=== PATIENT | male | born 1985 ===

== ENCOUNTER 2019-08-05 23:08 | Emergency (ER) | payer SELFPAY ==
[~2019-08-05] VITALS: Ht 180.3 cm; Wt 100.0 kg
[~2019-08-05 23:08] MED LIST: CRUTCH4 USE; HYDACE5 PO; IBUP200; PENVK500 PO
[2019-08-05 23:26] LABS: BASOPHILS ABSOLUTE AUTO 0.07 K/mm3 (0.00-0.23); BASOPHILS PERCENT AUTO 0 % (0-2); EOSINOPHILS ABSOLUTE AUTO 0.06 K/mm3 (0.00-0.68); EOSINOPHILS PERCENT AUTO 0 % (0-6); Hematocrit 42.1 % (37.0-53.0); Hemoglobin 14.4 g/dL (13.5-17.5); IMMATURE GRAN ABSOLUTE AUTO 0.15 K/mm3 (0.00-0.10); IMMATURE GRAN PERCENT AUTO 1 % (0-1); LYMPHOCYTES ABSOLUTE AUTO 2.53 K/mm3 (0.84-5.20); LYMPHOCYTES PERCENT AUTO 13 % (21-46); MONOCYTES PERCENT AUTO 8 % (4-13); Mean Corpuscular HGB 33.9 pg (26.0-34.0); Mean Corpuscular HGB Conc 34.2 g/dL (31.5-36.5); Mean Corpuscular Volume 99 fL (80-100); Mean Platelet Volume 9.2 fL (9.1-12.4); NEUTROPHILS ABSOLUTE AUTO 14.55 K/mm3 (1.96-9.15); NEUTROPHILS PERCENT AUTO 77 % (41-73); Platelet Count 294 K/mm3 (150-400); RDW Coefficient Variation 12.7 % (11.7-14.2); RDW Standard Deviation 46.6 fL (35.1-46.3); Red Blood Cell Count 4.25 M/mm3 (4.30-5.90); White Blood Cell Count 18.96 K/mm3 (4.00-11.30)
[2019-08-05 23:47] LABS: Alanine Aminotransfer (ALT/SGP 40 U/L (12-78); Albumin, Blood 3.9 g/dL (3.4-5.0); Albumin/Globulin Ratio 1.2 (0.8-1.8); Alk Phos 67 U/L (50-136); Anion Gap 8 mmol/L (6-16); Aspartate Aminotrans (AST/SGOT 49 U/L (12-37); Bilirubin, Total 0.3 mg/dL (0.1-1.0); Blood Urea Nitrogen 15 mg/dL (8-24); Bun/Creatinine Ratio 14.7 (12.0-20.0); CO2, Blood 25 mmol/L (21-32); Calcium, Blood 8.1 mg/dL (8.5-10.1); Chloride, Blood 108 mmol/L (98-108); Creatinine, Blood 1.02 mg/dL (0.60-1.20); Ethanol (Alcohol), Blood, Med 231 mg/dL; Globulin, Blood 3.2 g/dL (2.2-4.0); Glomerular Filtration Rate >60 (60-); Glucose, Blood 100 mg/dL (70-99); Sodium, Blood 141 mmol/L (136-145); Total Protein, Blood 7.1 g/dL (6.4-8.2)
[2019-08-06 00:30] LABS: Source, Urine Catheter
[2019-08-06 00:33] LABS: Bilirubin, Urine Neg (Neg); Blood, Urine Neg (Neg); Glucose Qualitative, Urine Neg (Neg); Ketones, Urine Neg (Neg); Leukocyte Esterase, Urine Neg (Neg); Nitrite, Urine Neg (Neg); Protein, Urine Neg (Neg); Urobilinogen, Urine NORM (Normal)
[2019-08-06 00:37] LABS: Appearance, Urine Clear (Clear); Color, Urine Yellow (P-Yellow)
== END 2019-08-06 01:00 | disposition short-term general hospital (02) ==
LOC: ER 23:08
PROVIDERS: Emergency Medicine
DX: S06.5X9A Traumatic subdural hemorrhage with loss of consciousness of unspecified duration, initial encounter (principal); S02.19XA Other fracture of base of skull, initial encounter for closed fracture; S42.021A Displaced fracture of shaft of right clavicle, initial encounter for closed fracture; S22.41XA Multiple fractures of ribs, right side, initial encounter for closed fracture; S27.321A Contusion of lung, unilateral, initial encounter; S30.0XXA Contusion of lower back and pelvis, initial encounter; S60.512A Abrasion of left hand, initial encounter; S60.511A Abrasion of right hand, initial encounter; S80.812A Abrasion, left lower leg, initial encounter; S80.811A Abrasion, right lower leg, initial encounter; S30.811A Abrasion of abdominal wall, initial encounter; S30.810A Abrasion of lower back and pelvis, initial encounter; F10.129 Alcohol abuse with intoxication, unspecified; Z88.5 Allergy status to narcotic agent; F17.200 Nicotine dependence, unspecified, uncomplicated; V86.59XA Driver of other special all-terrain or other off-road motor vehicle injured in nontraffic accident, initial encounter
CPT/HCPCS: 31500; 31720; 51702; 70450; 71045; 71260; 72125; 73080; 74177; 80053; 81003; 83690; 85025; 90471; 90714; 94002; 94003; 96361; 96374; 96375; 96376; 99291-25; 99292; G0480; J2704; J3010; J7030; Q9967

== ENCOUNTER 2023-04-23 22:04 | Emergency (ER) | payer SELFPAY ==
[~2023-04-23] VITALS: Ht 190.5 cm; Wt 104.3 kg
[2023-04-23 22:12] VITALS: BP 140/105
[2023-04-23] MEDS ORDERED: AMOCLA875 PO (22:37)
== END 2023-04-23 22:45 | disposition home or self-care (01) ==
LOC: ER 22:04
DX: L08.9 Local infection of the skin and subcutaneous tissue, unspecified (principal); Z88.5 Allergy status to narcotic agent
CPT/HCPCS: 99282; A9270

== ENCOUNTER 2023-10-21 22:14 | Inpatient (IN) | payer OTHER ==
[~2023-10-21] VITALS: Ht 190.5 cm; Wt 97.0 kg
[~2023-10-21 22:14] MED LIST changes: +AMOCLA875 PO
[2023-10-21 23:54] LABS: BASOPHILS ABSOLUTE AUTO 0.08 K/mm3 (0.00-0.23); BASOPHILS PERCENT AUTO 0 % (0-2); EOSINOPHILS ABSOLUTE AUTO 0.17 K/mm3 (0.00-0.68); EOSINOPHILS PERCENT AUTO 1 % (0-6); Hematocrit 38.3 % (37.0-53.0); Hemoglobin 13.6 g/dL (13.5-17.5); IMMATURE GRAN ABSOLUTE AUTO 0.09 K/mm3 (0.00-0.10); IMMATURE GRAN PERCENT AUTO 0 % (0-1); LYMPHOCYTES ABSOLUTE AUTO 2.68 K/mm3 (0.84-5.20); LYMPHOCYTES PERCENT AUTO 13 % (21-46); MONOCYTES ABSOLUTE AUTO 2.13 K/mm3 (0.16-1.47); MONOCYTES PERCENT AUTO 10 % (4-13); Mean Corpuscular HGB 32.8 pg (26.0-34.0); Mean Corpuscular HGB Conc 35.5 g/dL (31.5-36.5); Mean Corpuscular Volume 92 fL (80-100); NEUTROPHILS ABSOLUTE AUTO 15.76 K/mm3 (1.96-9.15); NEUTROPHILS PERCENT AUTO 75 % (41-73); Platelet Count 262 K/mm3 (150-400); RDW Coefficient Variation 12.4 % (11.7-14.2); RDW Standard Deviation 42.4 fL (35.1-46.3); Red Blood Cell Count 4.15 M/mm3 (4.30-5.90); White Blood Cell Count 20.91 K/mm3 (4.00-11.30)
[2023-10-22 00:06] LABS: Albumin, Blood 3.8 g/dL (3.4-5.0); Bilirubin, Total 0.8 mg/dL (0.1-1.0); Bun/Creatinine Ratio 14.4 (12.0-20.0); Calcium, Blood 9.1 mg/dL (8.5-10.1); Creatinine, Blood 0.9 mg/dL (0.60-1.20); Globulin, Blood 3.8 g/dL (2.2-4.0); Potassium, Blood 3.7 mmol/L (3.5-5.5); Total Protein, Blood 7.6 g/dL (6.4-8.2)
[2023-10-22] MEDS ORDERED: NS 1,000 ML IV SCH (03:15)
[2023-10-22] MEDS ORDERED: CefTRIAXone Sodium 1,000 MG in NS 50 ML IV ONE (03:15)
[2023-10-22] MEDS ORDERED: Ketorolac Tromethamine 30mg Vial IV ONE (03:15)
[2023-10-22] MEDS ORDERED: CefTRIAXone Sodium 1,000 MG in NS 100 ML IV ONE (04:35)
[2023-10-22] MEDS ORDERED: Acetaminophen 325 MG TABLET PO PRN (05:10)
[2023-10-22] MEDS ORDERED: Ondansetron HCl 2 MG / ML 2ML Vial IV PRN (05:10)
[2023-10-22] MEDS ORDERED: Ketorolac Tromethamine 15mg Vial IV PRN (05:15)
[2023-10-22 06:43] VITALS: BP 109/67
[2023-10-22] MEDS ORDERED: CeFAZolin Sodium 2,000 MG in NS 100 ML IV SCH (08:00)
[2023-10-22] MEDS ORDERED: NS 1,000 ML BAG IR SCH (08:35)
[2023-10-22] MEDS ORDERED: NS 250 ML IV PRN (08:40)
[2023-10-22] MEDS ORDERED: Lactobacil 2-S.Thermo-Bifido 1 1 Cap PO SCH (09:00)
[2023-10-22 16:30] VITALS: BP 133/73
--- NOTE | 2023-10-22 18:12 | NUR ---
SHIFT SUMMARY PATIENT ALERT AND ORIENTED TIMES 4, PAINFUL SWOLLEN AND REDDENED RIGHT GROIN AREA. IV ANTIBOTICS GIVEN. VSS, URINE SAMPLE COLLECT R/O STD, MSRA SWAB COMPLETED.
[2023-10-22 19:15] VITALS: BP 122/80
--- NOTE | 2023-10-23 03:05 | NUR ---
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 ALERT AND ORIENTED X 4. SLEEPING INTERMITTENTLY IN THE EVENING. TOLERATED DIET WELL. MEDICATED FOR PAIN, AND RECEIVING IV ANTIBIOTICS FOR GROIN CELLULITIS (SEE PIC IN CHART). UP AD JAZMIN. ABLE TO REPOSITION SELF IN BED FOR COMFORT WITHOUT ASSIST. HAS BEEN RESTING QUIETLY WITH FEW INTERRUPTIONS THROUGHOUT NOCT. CALL LIGHT IN REACH, RAILS UP X 2 AND BED IN LOW POSITION FOR SAFETY. ISOLATION PRECAUTIONS CONTINUE-SEE LAB FOR CULTURE DETAILS. NO NOTED S/S ACUTE PHYSICAL DISTRESS. WILL CONTINUE TO MONITOR
[2023-10-23 04:19] VITALS: BP 115/72
[2023-10-23 04:54] LABS: BASOPHILS ABSOLUTE AUTO 0.07 K/mm3 (0.00-0.23); BASOPHILS PERCENT AUTO 1 % (0-2); EOSINOPHILS ABSOLUTE AUTO 0.29 K/mm3 (0.00-0.68); EOSINOPHILS PERCENT AUTO 2 % (0-6); IMMATURE GRAN ABSOLUTE AUTO 0.05 K/mm3 (0.00-0.10); IMMATURE GRAN PERCENT AUTO 0 % (0-1); LYMPHOCYTES ABSOLUTE AUTO 2.36 K/mm3 (0.84-5.20); LYMPHOCYTES PERCENT AUTO 16 % (21-46); MONOCYTES ABSOLUTE AUTO 1.53 K/mm3 (0.16-1.47); MONOCYTES PERCENT AUTO 11 % (4-13); Mean Corpuscular HGB 32.1 pg (26.0-34.0); Mean Corpuscular HGB Conc 34.2 g/dL (31.5-36.5); Mean Corpuscular Volume 94 fL (80-100); Mean Platelet Volume 9.8 fL (9.1-12.4); NEUTROPHILS ABSOLUTE AUTO 10.29 K/mm3 (1.96-9.15); NEUTROPHILS PERCENT AUTO 71 % (41-73); Platelet Count 261 K/mm3 (150-400); RDW Coefficient Variation 12.7 % (11.7-14.2); RDW Standard Deviation 44.1 fL (35.1-46.3); Red Blood Cell Count 4.05 M/mm3 (4.30-5.90); White Blood Cell Count 14.59 K/mm3 (4.00-11.30)
[2023-10-23 05:48] LABS: Bun/Creatinine Ratio 13.8 (12.0-20.0); Calcium, Blood 9.1 mg/dL (8.5-10.1); Creatinine, Blood 0.95 mg/dL (0.60-1.20); Potassium, Blood 4.1 mmol/L (3.5-5.5)
[2023-10-23 07:29] VITALS: BP 114/72
[2023-10-23] MEDS ORDERED: Nicotine 21 MG PATCH TOP SCH (14:10)
[2023-10-23 15:11] VITALS: BP 124/80
--- NOTE | 2023-10-23 18:14 | NUR ---
SHIFT SUMMARY MR OKEEFE HAS SOME INCREASE TO RIGHT GROIN SWELLING. PINKNESS 1-2CM PAST PEN MICHAEL FROM 10/21. UP INDEPENDENTLY TO THE BATHROOM. HE SMOKES 1.5PPD CIGARETTES NORMALLY, NICOTENE PATCH APPLIED AND PT SAID HE'S FEELING BETTER SINCE APPLICATION. PAIN WELL CONTROLLED. BED LOW, CALL LIGHT IN REACH.
[2023-10-23 20:02] VITALS: BP 131/87
--- NOTE | 2023-10-24 03:54 | NUR ---
PHYTOPATHOLOGY TEACHER SUMMARY VSS. ALERT AND ORIENTED. UP AD JAZMIN. VOICED GROIN INFLAMMATION INCREASED IN SWELLING. NOTD SWELLING OF RIGHT GROIN, APPEARS MORE SWOLLEN THAN NOTED OF PIC IN CHART TAKEN A FEW DAYS AGO. NO NOTED DRAINAGE. REQUESTED AND RECEIVED ANALGESICS FOR DISCOMFORT, IV ANTIBIOTICS INFUSING ORDERED - SEE MAR FOR DETAILS OF MEDS ADMINISTERED. ABLE TO REPOSITION SELF IN BED WITHOUT ASSIST. RAILS UP X 2, CALL LIGHT IN REACH AND BED IN LOW POSITION FOR SAFETY. ISOLATION PRECAUTIONS MAINTAINED. ENCOURAGED TO TALK TO MD IN THE AM RE HIS CONCERNS RE GRION CELLULITIS, AGREED TO DO SO. WILL CONTINUE TO MONITOR
[2023-10-24 05:21] VITALS: BP 123/81
[2023-10-24 07:24] VITALS: BP 113/84
--- NOTE | 2023-10-24 09:00 | NUR ---
pt laying in bed wakes easily, a/ox4, pleasant and cooperative with care, follows commands well, denies complaints, lungs clear on r/a, no cough noted, hrr, no edema noted, ppp+2, cap refill<3 sec, vs stable, afebrile, piv to rhand site is clear and patent, btx4, abd flat soft nontender, voids without diff, skin c/w/d, maew, abraham, call light in reach.
[2023-10-24] MEDS ORDERED: CefTRIAXone Sodium 2,000 MG in NS 100 ML IV SCH (10:30)
[2023-10-24] MEDS ORDERED: Vancomycin HCL 2,500 MG in NS 500 ML IV ONE (11:00)
[2023-10-24 16:09] VITALS: BP 139/83
[2023-10-24 17:08] LABS: HIV 1,2 COMBO ANTIGEN/ANTIBODY Negative (Negative)
--- NOTE | 2023-10-24 19:22 | NUR ---
pt up ad wilfred in room, has been pleasant and cooperative with care, ct was done Dr. Cespedes was consulted and ordered him to be npo after mid, abx were changed today, no further changes this shift. call light in reach.
[2023-10-24 19:37] VITALS: BP 108/79
[2023-10-24] MEDS ORDERED: Vancomycin HCL 1,250 MG in NS 250 ML IV SCH (20:00)
[2023-10-25] VITALS (11 sets, daily range): BP systolic 100–134; BP diastolic 64–94
--- NOTE | 2023-10-25 06:00 | NUR ---
SHIFT SUMMARY: PATIENT FULLY ORIENTED, COOPERATIVE. COMPLAINTS OF PAIN IN RIGHT GROIN AT BEGINNING OF SHIFT WHICH WERE ALLIEVIATED SUCCESSFULLY BY KETORLAC. RIGHT GROIN ABSCESS HAD MINOR DRAINAGE AT 0200, COVERED BY GAUZE AND TAPE.
[2023-10-25 06:31] LABS: APTIMA MEDIA TYPE Urine; C. TRACHOMATIS BY TMA Negative (Negative); N. GONORRHOEAE BY TMA Negative (Negative); SPECIMEN SOURCE Urine
[2023-10-25 11:22] LABS: Creatinine, Blood 0.96 mg/dL (0.60-1.20); Vancomycin, Trough 19.5 ug/mL (5.0-10.0)
[2023-10-25] MEDS ORDERED: Vancomycin HCL 1,000 MG in NS 250 ML IV SCH (12:00)
[2023-10-25] MEDS ORDERED: Lactated Ringer's 1,000 ML IV SCH (12:35)
[2023-10-25] MEDS ORDERED: Midazolam HCL 1 MG/ML 5MLVIAL ONE (12:57)
[2023-10-25] MEDS ORDERED: Lidocaine HCl 2% 20 ML MDV ONE (13:02)
[2023-10-25] MEDS ORDERED: propofoL 40 ML IV ONE (13:02)
[2023-10-25] MEDS ORDERED: Ketamine HCl 100 MG / ML 5ML Vial ONE (13:08)
[2023-10-25] MEDS ORDERED: HYDROcodone 5-APAP 325 TAB PO PRN (13:10)
[2023-10-25] MEDS ORDERED: Bupivacaine HCl 0.25% 30 ML Injection SC ONE (13:34)
--- NOTE | 2023-10-25 13:35 | NUR ---
10/25/23 1335 Osito Montes De Oca PT ON SCHEDULED ANTIBIOTICS AND STARTED PRIOR TO ARRIVAL TO OR.
--- NOTE | 2023-10-25 13:45 | NUR ---
BP CUFF NOT WORKING AFTER SEVERAL ATTEMPTS AND ADJUSTMENTS, NEW CUFF ON, ANESTHESIOLOGIST REMAINS AT BS
--- NOTE | 2023-10-25 17:48 | NUR ---
REPORT RECEIVED VERIFIED, PT VERY QUIET TRYING TO SLEEP AND HAS HAD MINIMAL PAIN TO GROINING AREA. PT NPO AND AWAITING SX FOR I/D OF GROIN AREA. PT SLEEPING NO S/S OF DISTRESS. 1200 PT TAKEN DOWN STAIRS FOR PROCEDURE. 1430 PT BACK A/O X4 BETTER SPIRITS MINIMAL PAIN TO GROIN. 1/4 KEVON DRAIN INTACT MINIMAL DRAINAGE NOTED COVERED WITH 4X4 ND ABD PAD. PT EATING DINNER
--- NOTE | 2023-10-25 22:33 | NUR ---
2105 PT SITTING UP IN BED, VISITOR IN ROOM. DENIED ANY DISCOMFORT. NEW DRESSING APPLIED TO R GROIN SITE. NO OTHER APPARENT SIGNS OF DISTRESS. CALL LIGHT IS IN REACH.
--- NOTE | 2023-10-26 02:45 | NUR ---
10/25/23 2330 PT LYING IN BED AWAKE, DENIES NEED FOR ANYTHING AT THIS TIME. NO APPARENT SIGNS OF DISTRESS. CALL LIGHT IS IN REACH.
--- NOTE | 2023-10-26 03:01 | NUR ---
WHEN THIS RN ENTERS THE PT'S ROOM, PT IS SLEEPING AND DOES NOT APPEAR TO BE IN ANY DISTRESS.
[2023-10-26 03:26] VITALS: BP 144/90
--- NOTE | 2023-10-26 04:14 | NUR ---
PT APPEARS TO BE SLEEPING AND IN NO DISTRESS.
--- NOTE | 2023-10-26 04:54 | NUR ---
AAO X 4, RA, R GROIN WOUND THAT HAD AND I&D YESTERDAY, APPLIED NEW DRESSING. PT DENIED ANY DISCOMFORT FOR THIS SHIFT. PT A LITTLE GRUMPY THIS MORNING, DOES NOT WANT ANYMORE THAN 1 OR 2 PEOPLE AT A TIME IN HIS ROOM. REFUSED LAB DRAW, THEY WILL TRY AGAIN LATER.
[2023-10-26] MEDS ORDERED: LORazepam 0.5 MG Tab PO ONE (05:35)
[2023-10-26 08:15] VITALS: BP 132/87
[2023-10-26 08:50] LABS: Hematocrit 37.6 % (37.0-53.0); Hemoglobin 12.8 g/dL (13.5-17.5); Mean Corpuscular HGB 31.9 pg (26.0-34.0); Mean Corpuscular Volume 94 fL (80-100); Mean Platelet Volume 8.9 fL (9.1-12.4); Platelet Count 314 K/mm3 (150-400); RDW Coefficient Variation 12.5 % (11.7-14.2); RDW Standard Deviation 43.5 fL (35.1-46.3); Red Blood Cell Count 4.01 M/mm3 (4.30-5.90); White Blood Cell Count 8.03 K/mm3 (4.00-11.30)
[2023-10-26] MEDS ORDERED: Polyethylene Glycol 3350 17 gm PO SCH (09:00)
[2023-10-26 09:10] LABS: Bun/Creatinine Ratio 16.3 (12.0-20.0); Calcium, Blood 8.9 mg/dL (8.5-10.1); Creatinine, Blood 0.92 mg/dL (0.60-1.20); Potassium, Blood 3.9 mmol/L (3.5-5.5)
[2023-10-26 11:25] LABS: Vancomycin, Trough 17.6 ug/mL (5.0-10.0)
[2023-10-26 15:16] VITALS: BP 130/88
[2023-10-26] MEDS ORDERED: HyDROXyzine HCl 25 MG Tab PO PRN (15:40)
--- NOTE | 2023-10-26 17:08 | NUR ---
PT IS A/OX4, PLEASANT AND COOPERATIVE. THE PT IS UP IND IN HIS ROOM. THE WAS UP AND SHOWERED AND APPLIED A NEW BANDAGE TO HIS WOUND TODAY. THE PT WAS MEDICATED FOR PAIN THIS AM X1, THE PT THIS AFTERNOON REPORTED FEELING VERY ANXIOUS THE PT WAS GIVEN HYDROXAZINE PER DR. RICHTER ORDER. A NICOTINE PATCH WAS APPLIED. PT MORE CALM AT THIS TIME, CALL LIGHT IN REACH
[2023-10-26 19:12] VITALS: BP 121/87
[2023-10-27 02:41] VITALS: BP 113/78
--- NOTE | 2023-10-27 03:31 | NUR ---
KILN FEEDER SUMMARY VSS. ALERT AND ORIENTED. FEMALE VISITOR LEFT AT HS. KEVON DRAIN IN RIGHT GROIN FOR DRAINAGE. RECEIVING IV ANTIBIOTICS. NO C/O PAIN OF THIS WRITING BUT SEE MAR FOR POTENTIAL FUTURE ANALGESICS ADMIN. UP AD JAZMIN, ABLE TO REPOSITION SELF IN BED WITHOUT ASSIST. HAS BEEN RESTING QUIELTY WITH FEW INTERRUPTIONS. CALL LIGHT IN REACH, RAILS UP X 2 AND BED IN LOW POSITION FOR SAFETY. WILL CONTINUE TO MONITOR
[2023-10-27 07:15] VITALS: BP 118/72
[2023-10-27 08:49] LABS: Bun/Creatinine Ratio 19.8 (12.0-20.0); Calcium, Blood 8.7 mg/dL (8.5-10.1); Creatinine, Blood 0.96 mg/dL (0.60-1.20)
[2023-10-27] MEDS ORDERED: HYDHCL25 PO (11:15)
[2023-10-27] MEDS ORDERED: HYDROCODONE-AC1 EA19 PO (11:18)
[2023-10-27] MEDS ORDERED: VISBIOME 112.51 EACH PO (11:19)
[2023-10-27] MEDS ORDERED: NICOTINE1 EAC1 TOP (11:19)
[2023-10-27] MEDS ORDERED: AMOCLA875 PO (11:20)
[2023-10-27 14:39] VITALS: BP 114/63
--- NOTE | 2023-10-27 16:04 | NUR ---
pt discharged THE PT VERBALIZED UNDERSTANDING OF THE DC INSTRUCTIONS. THE PTS PRESCRIPTION WAS FAXED TO [facility] REQUESTED. THE PT DECLINED A WHEELCHAIR AND AMBULATED OUT STEADY ON HIS FEET. THE PT WAS RECOMENDED TO FOLLOW UP WITH HIS PCP. PT WAS GIVEN A PRESCRIPTION FOR [facility]
== END 2023-10-27 16:01 | disposition home or self-care (01) | DRG 872 ==
LOC: ER 22:14 → MEDS 22:15 → ENPENDDIS 10-27 10:29 → MEDS 10-27 16:01
PROVIDERS: Emergency Medicine; Internal Medicine; ADMIT Student in an Organized Health Care Education/Training Program
PROC: 3E03329 Introduction of Other Anti-infective into Peripheral Vein, Percutaneous Approach (ICD-10-PCS; principal; 2023-10-21)
PROC: 0H98XZZ Drainage of Buttock Skin, External Approach (ICD-10-PCS; 2023-10-25)
DX: A41.9 Sepsis, unspecified organism (principal); L03.314 Cellulitis of groin; L02.214 Cutaneous abscess of groin; Z71.6 Tobacco abuse counseling; Z87.891 Personal history of nicotine dependence; Z98.890 Other specified postprocedural states; Z88.5 Allergy status to narcotic agent; E86.0 Dehydration
CPT/HCPCS: 36415; 72193; 74177; 80048; 80053; 80202; 82565; 83605; 85025; 85027; 86592; 87040; 87389; 87491; 87591; 96365-59; 96366; 96375; 99284-25; A9270; G0378; J0690; J0696; J1885; J2250; J2704; J3370; J7030; J7040; J7050; J7120; Q9967